=== PATIENT | male | born 1995 | race Caucasian/White ===

== ENCOUNTER 2023-03-02 08:21 | Emergency (ER) | payer SELFPAY ==
[~2023-03-02] VITALS: Ht 172.7 cm; Wt 89.0 kg
[2023-03-02 08:23] VITALS: TEMP 98.6; O2SAT 99
[2023-03-02] MEDS ORDERED: KETOROLAC 60MG/2ML VIAL IM ONE (09:30)
[2023-03-02 10:05] VITALS: BP 134/67; PULSE 95; RESP 18
[2023-03-02] MEDS ORDERED: AMOX1TAB16 MT (11:29)
[2023-03-02] MEDS ORDERED: IBUP-2029 MT (11:29)
== END 2023-03-02 12:40 | disposition home or self-care (01) ==
LOC: EDSEX 08:30 → ER 08:30
DX: L03.125 Acute lymphangitis of right lower limb (principal); L03.115 Cellulitis of right lower limb; I80.9 Phlebitis and thrombophlebitis of unspecified site
CPT/HCPCS: 96372; 99283; J1885; Z7610 ×2